=== PATIENT | male | born 1955 | race Caucasian/White ===

== ENCOUNTER 2019-06-01 06:48 | Emergency (ER) | payer SELFPAY ==
[~2019-06-01] VITALS: Ht 165.1 cm; Wt 60.3 kg
[2019-06-01 07:08] VITALS: Ht 165.1 cm; Wt 60.3 kg
[2019-06-01 07:50] VITALS: BP 134/89
== END 2019-06-01 07:50 | disposition home or self-care (01) ==
LOC: ED 06:48
DX: E11.65 Type 2 diabetes mellitus with hyperglycemia (principal); E11.40 Type 2 diabetes mellitus with diabetic neuropathy, unspecified; Z76.0 Encounter for issue of repeat prescription
CPT/HCPCS: 82962